=== PATIENT | male | born 1985 | race Caucasian/White ===

== ENCOUNTER 2016-07-14 15:12 | Emergency (ER) | payer OTHER ==
[2016-07-14 15:23] VITALS: BP 131/92
[2016-07-14] MEDS ORDERED: Fluorescein Sodium TOPICAL* 1 MG TEST ONE (15:32)
[2016-07-14] MEDS ORDERED: BSS OPTH.SOL* BTL ONE (15:32)
[2016-07-14] MEDS ORDERED: Tetracaine 0.5% OPTH.SOL 15ML* BTL ONE (15:34)
--- NOTE | 2016-07-14 16:04 | UC ---
Eye Complaint HPI - HPI Summary HPI Summary: MOVING TREE OUT OF ROAD THIS AFTERNOON [employer], NO KNOWN TRAUMA, BUT PAIN AND TEARING IN LEFT EYE. PAIN WITH LIGHT - History of Current Complaint Chief Complaint: UCEye Stated Complaint: FOREIGN BODY IN EYE Time Seen by Provider: 07/14/16 15:14 Hx Obtained From: Patient Onset/Duration: Sudden Onset, Lasting Hours, Still Present Timing: Constant Severity Initially: Moderate Severity Currently: Moderate Location of Injury: Conjunctiva Character: Foreign Body Sensation Aggravating Factor(s): Nothing Alleviating Factor(s): Nothing Associated Signs And Symptoms: Positive: Drainage (Clear). Negative: Vision Impairment Right, Vision Impairment Left - Risk Factors Penetrating Injury Risk Factor: Negative Globe Rupture Risk Factors: Negative Acute Glaucoma Risk Factors: Negative Optic Artery Occlusion Risk Factors: Negative - Allergies/Home Medications Allergies/Adverse Reactions: Allergies Allergy/AdvReac Type Severity Reaction Status Date / Time No Known Allergies Allergy Verified 07/14/16 15:23 PMH/Surg Hx/FS Hx/Imm Hx Previously Healthy: Yes Endocrine History Of: Denies: Diabetes, Thyroid Disease Cardiovascular History Of: Denies: Cardiac Disorders, Hypertension, Congestive Heart Failure Respiratory History Of: Denies: COPD, Asthma GI/ History Of: Denies: Ulcer, Renal Disease - Surgical History Surgical History: Yes Surgery Procedure, Year, and Place: APPENDECTOMY IN 1998. LEFT KNEE SURGERY - Family History Known Family History: Positive: None, Other - NO FAMILY OF GLAUCOMA Family History: NON CONTRIBUTORY - Social History Occupation: Employed Full-time Lives: With Family Alcohol Use: None Substance Use Type: None Smoking Status (MU): Never Smoked Tobacco Review of Systems Constitutional: Negative Skin: Negative Eyes: Drainage, Eye Redness ENT: Negative Respiratory: Negative Cardiovascular: Negative Gastrointestinal: Negative Genitourinary: Negative Motor: Negative Neurovascular: Negative Musculoskeletal: Negative Neurological: Negative Psychological: Negative All Other Systems Reviewed And Are Negative: Yes Physical Exam Triage Information Reviewed: Yes Appearance: Well-Appearing, No Pain Distress, Well-Nourished Vital Signs: Initial Vital Signs Temp 99.1 F 07/14/16 15:19 Pulse 82 07/14/16 15:19 Resp 18 07/14/16 15:19 BP 131/92 07/14/16 15:19 Vital Signs Reviewed: Yes Eye Exam: Other - NEGATIVE SIDELS SIGN Eyes: Positive: Conjunctiva Inflamed, Other: - FLUORESCEIN UPTAKE 12 OCLOCK OF LEFT EYE ENT Exam: Normal ENT: Positive: Normal ENT inspection, Hearing grossly normal, Pharynx normal, TMs normal Dental Exam: Normal Neck exam: Normal Neck: Positive: Supple, Nontender, No Lymphadenopathy Respiratory Exam: Normal Respiratory: Positive: Chest non-tender, Lungs clear, Normal breath sounds, No respiratory distress, No accessory muscle use Cardiovascular Exam: Normal Cardiovascular: Positive: RRR, No Murmur, Pulses Normal Abdominal Exam: Normal Musculoskeletal Exam: Normal Musculoskeletal: Positive: Strength Intact, ROM Intact Neurological Exam: Normal Psychological Exam: Normal Skin Exam: Normal Eye Complaint Course/Dx - Differential Dx/Diagnosis Differential Diagnosis/HQI/PQRI: Conjunctivitis, Corneal Abrasion Provider Diagnoses: LEFT CORNEAL ABRASION. CONJUNCTIVITIS Discharge - Discharge Plan Condition: Stable Disposition: HOME Prescriptions: Polymyx/Trimethoprim OPTH* [Polytrim OPHTH*] 1 drop LEFT EYE Q3H #1 btl Patient Education Materials: Corneal Abrasion (ED) Referrals: [facility] [Outside]
== END 2016-07-14 15:54 | disposition home or self-care (01) ==
LOC: UCEAST 15:12
DX: T15.02XA Foreign body in cornea, left eye, initial encounter (principal); W45.8XXA Other foreign body or object entering through skin, initial encounter; R03.0 Elevated blood-pressure reading, without diagnosis of hypertension
CPT/HCPCS: 99212; A9270-GY; G0463

== ENCOUNTER 2017-05-20 08:23 | Emergency (ER) | payer SELFPAY ==
[2017-05-20 08:34] VITALS: BP 135/85
[2017-05-20] MEDS ORDERED: Meclizine TAB* 12.5 MG PO ONE (09:40)
[2017-05-20] MEDS ORDERED: Ondansetron ODT TAB* 4 MG PO ONE (09:40)
--- NOTE | 2017-05-20 09:58 | UC ---
Nausea/Vomiting/Diarrhea HPI - HPI Summary HPI Summary: Nausea and vomiting intermittently since Thursday. He has vertigo and balance problems. He has no hearing loss or ear pain. he has never had this before. No hx of CVA. - History of Current Complaint Chief Complaint: UCGeneralIllness Stated Complaint: DIZZYNESS/STOMACH ACHE/WEAK Time Seen by Provider: 05/20/17 09:40 Hx Obtained From: Patient Onset/Duration: Gradual Onset, Lasting Days Timing: Intermittent Episodes Lasting: - hours Severity Initially: Moderate Severity Currently: Moderate Aggravating Factor(s): Movement Alleviating Factor(s): Other: - rest Nausea/Vomiting Presence: Nauseated, Vomiting Vomiting Frequency: Every 1-2 hours Diarrhea Presence: No - Allergies/Home Medications Allergies/Adverse Reactions: Allergies Allergy/AdvReac Type Severity Reaction Status Date / Time No Known Allergies Allergy Verified 05/20/17 08:33 PMH/Surg Hx/FS Hx/Imm Hx Previously Healthy: Yes - Surgical History Surgical History: Yes Surgery Procedure, Year, and Place: APPENDECTOMY IN 1998. LEFT KNEE SURGERY - Family History Known Family History: Positive: None, Other - NO FAMILY OF GLAUCOMA Family History: NON CONTRIBUTORY - Social History Occupation: Employed Full-time Alcohol Use: None Substance Use Type: None Smoking Status (MU): Never Smoked Tobacco Review of Systems Neurological: Other - vertigo. All Other Systems Reviewed And Are Negative: Yes Physical Exam Triage Information Reviewed: Yes Appearance: No Pain Distress, Pain Distress - Non toxic. He has obvious vertigo with changes in position., Obese Vital Signs: Initial Vital Signs Temp 98.3 F 05/20/17 08:28 Pulse 77 05/20/17 08:28 Resp 18 05/20/17 08:28 BP 135/85 05/20/17 08:28 Pulse Ox 98 05/20/17 08:28 Vital Signs Reviewed: Yes Eye Exam: Normal Eyes: Positive: Conjunctiva Clear ENT: Positive: TMs normal. Negative: Nasal congestion, TM bulging, TM dull, TM red Neck: Positive: Supple, Nontender, No Lymphadenopathy Respiratory: Positive: Chest non-tender, Lungs clear, Normal breath sounds, No respiratory distress, No accessory muscle use, Respiratory distress. Negative: Decreased breath sounds, Accessory muscle use, Crackles, Rhonchi, Stridor Cardiovascular: Positive: RRR, No Murmur, Pulses Normal, Brisk Capillary Refill Abdomen Description: Positive: Nontender, No Organomegaly, Soft. Negative: Distended, Guarding Musculoskeletal: Positive: Strength Intact, ROM Intact, No Edema Neurological Exam: Other - CN III-XII intact. Finger to nose intact. No obvious hearing loss. Neurological: Positive: Alert, Muscle Tone Normal. Negative: Fatigued, Lethargic Psychological: Positive: Age Appropriate Behavior Skin: Negative: rashes Naus/Vom/Diarrhea Course/Dx - Course Course Of Treatment: We told him he will need further testing with ENT or audiology for CN VIII testing. Supportive care described. - Differential Dx/Diagnosis Provider Diagnoses: vertigo Condition At Discharge: Good Discharge - Discharge Plan Condition: Good Disposition: HOME Prescriptions: Meclizine HCl [Meclizine 25] 25 mg PO TID PRN #30 tab PRN Reason: Vertigo Ondansetron ODT TAB* [Zofran 4 MG Odt TAB*] 4 mg PO Q8H PRN #20 tab.odt PRN Reason: Nausea Patient Education Materials: Vertigo (ED) Forms: *Work Release Referrals: Jim Wallace MD [Medical Doctor] - No Primary Care Phys,NOPCP [Primary Care Provider] -
== END 2017-05-20 10:18 | disposition home or self-care (01) ==
LOC: UCCORT 08:23
DX: R42 Dizziness and giddiness (principal)
CPT/HCPCS: 99212; A9270-GY; G0463

== ENCOUNTER 2018-08-10 13:36 | Emergency (ER) | payer BC ==
[2018-08-10 14:33] VITALS: BP 142/84
--- NOTE | 2018-08-10 15:26 | UC ---
Throat Pain/Nasal Luis Armando HPI - HPI Summary HPI Summary: 32-year-old male comes in with chief complaint of upper respiratory tract infection symptoms and vomiting. About 6 days ago patient started with runny nose sore throat and cough. No shortness of breath no wheezing. Symptoms improved with [id number] medications. Everything worse yesterday patient wants vomiting overnight. No abdominal pain. - History of Current Complaint Chief Complaint: UCGeneralIllness Stated Complaint: HEAD/CHEST COLD Time Seen by Provider: 08/10/18 15:09 Pain Intensity: 6 - Allergies/Home Medications Allergies/Adverse Reactions: Allergies Allergy/AdvReac Type Severity Reaction Status Date / Time No Known Allergies Allergy Verified 08/10/18 14:26 Home Medications: Home Medications Phenylephrine/Dm/Acetaminop/GG [Mucinex Fast-Max Cold Flu] 1 tab PO Q12H PRN 05/19 [History Confirmed 08/10/18] PMH/Surg Hx/FS Hx/Imm Hx Previously Healthy: Yes - Surgical History Surgical History: Yes Surgery Procedure, Year, and Place: APPENDECTOMY IN 1998. LEFT KNEE SURGERY - Family History Known Family History: Positive: None, Other - NO FAMILY OF GLAUCOMA Family History: NON CONTRIBUTORY - Social History Alcohol Use: Rare Substance Use Type: None Smoking Status (MU): Never Smoked Tobacco Type: Smokeless Tobacco When Did the Patient Quit Smoking/Using Tobacco: March, Review of Systems All Other Systems Reviewed And Are Negative: Yes Constitutional: Positive: Negative Skin: Positive: Negative Eyes: Positive: Negative ENT: Positive: Sore Throat, Nasal Discharge, Sinus Congestion, Sinus Pain/ Tenderness Respiratory: Positive: Cough Cardiovascular: Positive: Negative Gastrointestinal: Positive: Vomiting, Nausea. Negative: Abdominal Pain Motor: Positive: Negative Neurovascular: Positive: Negative Musculoskeletal: Positive: Negative. Negative: Myalgia Neurological: Positive: Negative Psychological: Positive: Negative Is Patient Immunocompromised?: No Physical Exam Triage Information Reviewed: Yes Appearance: No Pain Distress, Well-Nourished, Ill-Appearing - MILD Vital Signs: Initial Vital Signs Temp 97.6 F 08/10/18 14:27 Pulse 87 08/10/18 14:27 Resp 18 08/10/18 14:27 BP 142/84 08/10/18 14:27 Pulse Ox 99 08/10/18 14:27 Vital Signs Reviewed: Yes Eye Exam: Normal Eyes: Positive: Conjunctiva Clear ENT: Positive: Pharyngeal erythema, Nasal congestion, Nasal drainage, TMs normal Neck exam: Normal Neck: Positive: Supple Respiratory: Positive: Lungs clear, Normal breath sounds, No respiratory distress Cardiovascular: Positive: RRR Abdomen Description: Positive: Nontender, Soft Musculoskeletal Exam: Normal Musculoskeletal: Positive: Strength Intact, ROM Intact Neurological Exam: Normal Neurological: Positive: Alert, Muscle Tone Normal Psychological Exam: Normal Psychological: Positive: Age Appropriate Behavior Throat Pain/Nasal Course/Dx - Course Course Of Treatment: DISCUSSED VIRAL VERSES BACTERIAL INFECTION AND THE ROLE OF ANTIBIOTICS. THE PATIENT WISHES TO BE ON ANTIBIOTICS AT THIS TIME. - Differential Dx/Diagnosis Provider Diagnosis: Upper respiratory infection, Nausea & vomiting Discharge - Sign-Out/Discharge Documenting (check all that apply): Patient Departure All imaging exams completed and their final reports reviewed: No Studies - Discharge Plan Condition: Stable Disposition: HOME Prescriptions: Amoxicillin PO (*) [Amoxicillin 875 MG (*)] 875 mg PO BID #20 tab Ondansetron ODT TAB* [Zofran 4 MG Odt TAB*] 4 mg PO Q6H PRN #10 tab.odt PRN Reason: Nausea Patient Education Materials: Upper Respiratory Infection (ED), Acute Nausea and Vomiting (ED) Forms: *School Release Referrals: [facility] [Outside] Additional Instructions: FOLLOW UP WITH YOUR DOCTOR IF NOT COMPLETELY IMPROVED. GET RECHECKED FOR ANY WORSENING OF YOUR CONDITION OR QUESTIONS OR CONCERNS. - Billing Disposition and Condition Condition: STABLE Disposition: Home
== END 2018-08-10 15:32 | disposition home or self-care (01) ==
LOC: UCCORT 13:36
DX: J06.9 Acute upper respiratory infection, unspecified (principal); R11.2 Nausea with vomiting, unspecified
CPT/HCPCS: 99212; G0463

== ENCOUNTER 2019-05-04 11:35 | Emergency (ER) | payer BC, OTHER ==
--- NOTE | 2019-05-04 11:45 | UC ---
Laceration HPI - HPI Summary HPI Summary: 33 yo male presents with laceration. He tells me that he works for the [employer] and around 0200 this morning he was at a call and a metal pipe ricocheted and hit him in the central forehead - he sustained a small laceration to the area. No LOC. test operator at the scene cleaned and bandaged it. He is here for eval of this today. Has had an on and off mild headache all day, but no dizziness, vision changes, numbness, or tingling. He is unsure the date of his last tetanus shot. - History Of Current Complaint Stated Complaint: LAC TO HEAD Time Seen by Provider: 05/04/19 11:44 Hx Obtained From: Patient Laceration Location: Face Mechanism Of Injury: Blunt Trauma Onset/Duration: Sudden Onset Severity: Mild Pain Intensity: 2 Pain Scale Used: 0-10 Numeric - Allergies/Home Medications Allergies/Adverse Reactions: Allergies Allergy/AdvReac Type Severity Reaction Status Date / Time No Known Allergies Allergy Verified 05/04/19 11:57 PMH/Surg Hx/FS Hx/Imm Hx - Additional Past Medical History Additional PMH: None - Surgical History Surgical History: Yes Surgery Procedure, Year, and Place: APPENDECTOMY IN 1998. LEFT KNEE SURGERY - Family History Known Family History: Positive: None Family History: NON CONTRIBUTORY - Social History Lives: With Family Alcohol Use: Rare Substance Use Type: None Smoking Status (MU): Never Smoked Tobacco Type: Smokeless Tobacco When Did the Patient Quit Smoking/Using Tobacco: March, Review of Systems All Other Systems Reviewed And Are Negative: No Constitutional: Positive: Negative Skin: Positive: Other - Head lac Respiratory: Positive: Negative Cardiovascular: Positive: Negative Neurovascular: Positive: Negative Musculoskeletal: Positive: Negative Neurological: Positive: Negative Psychological: Positive: Negative Physical Exam - Summary Physical Exam Summary: GENERAL: NAD. WDWN. No pain distress. SKIN: Central forehead with 1.5cm linear superficial laceration that is well approximated and with dried clotted blood present. Slight edema around the area with slight TTP. No erythema, ecchymosis, or other wounds appreciated. HEENT: Head: See skin Eyes: PERRLA. EOM intact. NECK: Supple. Nontender. FROM CHEST: Breathing comfortably and in no distress. CV: RRR. Pulses intact. Brisk cap refill. MSK: FROM in B/L UEs and LEs with symmetric strength. NEURO: A&Ox3. 3 word recall, remote, recent memory, ability to follow 2-step directions, and attention intact. CN: II: Peripheral galan intact. Vision normal. III, IV, : EOMI. No nystagmus. PERRLA. V: Sensations intact and symmetric. Opens mouth and clenches teeth. VII: No facial asymmetry. Forehead wrinkles. Grins, shuts eyes, frowns, puffs cheeks. VIII: Hearing intact to finger rub. IX, X: Swallows and coughs. Uvula midline. XI: Shrugs shoulders. Turns head against resistance. XII: No tongue deviation Lmwwct-ga-fwva are intact. Gait with normal base. Romberg: maintains balance, no pronator drift. Normal speech. No facial drooping. PSYCH: Age appropriate behavior. Triage Information Reviewed: Yes Vital Signs: Vital Signs: Temp Pulse Resp BP Pulse Ox 98.5 F 66 15 133/81 99 05/04/19 11:55 05/04/19 11:55 05/04/19 11:55 05/04/19 11:55 05/04/19 11:55 Vital Signs Reviewed: Yes Laceration Repair - Laceration Repair 1 Description: Linear Laceration Size After Repair: Length (cm) - 1.5 Cleansing Completed Via Routine Prep: Yes Closure Material: SteriStrips Closure Method: Single Layer Laceration Course/Dx - Course/Dx Course Of Treatment: Lac dried and well approximated as above. tdap updated today. Steri strips applied. Advised to change bandage daily and f/u prn. - Diagnosis Provider Diagnosis: Forehead laceration Discharge ED - Sign-Out/Discharge Documenting (check all that apply): Patient Departure All imaging exams completed and their final reports reviewed: No Studies - Discharge Plan Condition: Stable Disposition: HOME Patient Education Materials: Laceration (ED), Tdap and Td Vaccines for Adults ( ED), Steristrips (ED) Forms: *Work Release Referrals: No Primary Care Phys,NOPCP [Primary Care Provider] - Additional Instructions: If you develop a fever, shortness of breath, chest pain, new or worsening symptoms - please call your PCP or go to the ED immediately. Your tetanus was updated today. Change the bandage daily until the area is well healed - Billing Disposition and Condition Condition: STABLE Disposition: Home
[2019-05-04] MEDS ORDERED: Tetan/Diph/Pertus SYR(Tdap)* 0.5 ML SYR(BOOSTRIX) use SYR contains LATEX IM ONE (11:53)
[2019-05-04 11:57] VITALS: BP 133/81
== END 2019-05-04 12:39 | disposition home or self-care (01) ==
LOC: UCEAST 11:35
DX: S01.81XA Laceration without foreign body of other part of head, initial encounter (principal); W22.8XXA Striking against or struck by other objects, initial encounter; Y93.89 Activity, other specified; Y92.9 Unspecified place or not applicable; Y99.0 Civilian activity done for income or pay; Z87.891 Personal history of nicotine dependence
CPT/HCPCS: 90471; 90715; 99212; G0463

== ENCOUNTER 2019-05-31 17:29 | Emergency (ER) | payer SELFPAY ==
--- NOTE | 2019-05-31 17:32 | UC ---
Lower Extremity/Ankle HPI - HPI Summary HPI Summary: 33 yo male presents with RIGHT leg wound. He tells me that today he noticed a red streak to his right leg with a puncture wound. He is unsure when he sustained this puncture wound - could have been days ago. Was unaware of any wound or streaking until today when he noticed it in the shower. Denies pain, fever, chills, or hx of MRSA. Last tetanus was within the last few months. - History of Current Complaint Stated Complaint: LEG COMPLAINT Time Seen by Provider: 05/31/19 17:32 Hx Obtained From: Patient Severity Currently: None - Allergies/Home Medications Allergies/Adverse Reactions: Allergies Allergy/AdvReac Type Severity Reaction Status Date / Time No Known Allergies Allergy Verified 05/31/19 17:42 PMH/Surg Hx/FS Hx/Imm Hx - Additional Past Medical History Additional PMH: None - Surgical History Surgical History: Yes Surgery Procedure, Year, and Place: APPENDECTOMY IN 1998. LEFT KNEE SURGERY - Family History Known Family History: Positive: Other - NO FAMILY OF GLAUCOMA, Non-Contributory Family History: NON CONTRIBUTORY - Social History Occupation: Employed Full-time Lives: With Family Alcohol Use: Rare Substance Use Type: None Smoking Status (MU): Never Smoked Tobacco Type: Smokeless Tobacco When Did the Patient Quit Smoking/Using Tobacco: March, Review of Systems All Other Systems Reviewed And Are Negative: No Constitutional: Positive: Negative Skin: Positive: Other - right leg wound Respiratory: Positive: Negative Cardiovascular: Positive: Negative Neurological: Positive: Negative Psychological: Positive: Negative Physical Exam - Summary Physical Exam Summary: GENERAL: NAD. WDWN. No pain distress. SKIN: RIGHT LOWER LEG: Medial aspect with 1.0cm skin-flap superficial type puncture/laceration that is clotted and healing. Two mildly erythematous streaks extending ~6-7.0cm superior to wound. CHEST: No accessory muscle use. Breathing comfortably and in no distress. CV: Pulses intact PT and DP. Cap refill <2seconds MSK: RIGHT ANKLE FROM. Negative andrew sign. NEURO: Alert. Sensations intact and symmetric B/L LEs PSYCH: Age appropriate behavior. Triage Information Reviewed: Yes Vital Signs: Vital Signs: Temp Pulse Resp BP Pulse Ox 99.5 F 83 18 150/99 98 05/31/19 17:43 05/31/19 17:43 05/31/19 17:43 05/31/19 17:43 05/31/19 17:43 Vital Signs Reviewed: Yes Lower Extremity Course/Dx - Course Course Of Treatment: Discussed with Dr. Shoemaker - will start with Augmentin and have pt monitor area and if symptoms change recommend recheck immediately or go to the ED - Differential Dx/Diagnosis Provider Diagnosis: Leg abrasion, infected Discharge ED - Sign-Out/Discharge Documenting (check all that apply): Patient Departure All imaging exams completed and their final reports reviewed: Yes - Discharge Plan Condition: Stable Disposition: HOME Prescriptions: Amoxicillin/Clavulanate TAB* [Augmentin TAB 875*] 875 mg PO BID #14 tab Patient Education Materials: Wound Infection (ED) Referrals: No Primary Care Phys,NOPCP [Primary Care Provider] - Additional Instructions: If you develop a fever, shortness of breath, chest pain, new or worsening symptoms - please call your PCP or go to the ED immediately. Your blood pressure was high at todays visit. Please see your primary provider within 4 weeks for recheck and re-evaluation. If the redness on your legs spreads, becomes warm to touch, or starts draining - please be rechecked immediately - Billing Disposition and Condition Condition: STABLE Disposition: Home
[2019-05-31 17:44] VITALS: BP 150/99
[2019-05-31] MEDS ORDERED: Amoxicillin/Clavulanate TAB* 875 MG PO ONE (17:48)
== END 2019-05-31 18:00 | disposition home or self-care (01) ==
LOC: UCEAST 17:29
DX: S80.811A Abrasion, right lower leg, initial encounter (principal); L08.9 Local infection of the skin and subcutaneous tissue, unspecified; X58.XXXA Exposure to other specified factors, initial encounter; Y92.9 Unspecified place or not applicable
CPT/HCPCS: 99212; A9270-GY; G0463